=== PATIENT | male | born 1995 | race American Indian/Alaskan Native ===

== ENCOUNTER 2018-08-06 13:07 | Emergency (ER) | payer BC, OTHER ==
[2018-08-06] MEDS ORDERED: IBUPROFEN PO ONE (14:10)
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
[2018-08-06 15:36] VITALS: BP 128/62
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
== END 2018-08-06 15:48 | disposition left against medical advice (07) ==
LOC: ED 13:07
DX: S46.912A Strain of unspecified muscle, fascia and tendon at shoulder and upper arm level, left arm, initial encounter (principal); S16.1XXA Strain of muscle, fascia and tendon at neck level, initial encounter; J45.909 Unspecified asthma, uncomplicated; F17.200 Nicotine dependence, unspecified, uncomplicated; V89.2XXA Person injured in unspecified motor-vehicle accident, traffic, initial encounter; Y93.89 Activity, other specified; Y92.488 Other paved roadways as the place of occurrence of the external cause; Y99.8 Other external cause status
CPT/HCPCS: 72040; 99283

== ENCOUNTER 2020-02-02 10:22 | Emergency (ER) | payer BC ==
[2020-02-02 10:36] VITALS: BP 125/79
[2020-02-02] MEDS ORDERED: IPRATROPIUM 0.02% NEBU 2.5 ML IH ONE (11:38)
[2020-02-02] MEDS ORDERED: ALBUTEROL 2.5 MG/3 ML NEBU IH ONE (11:38)
[2020-02-02] MEDS ORDERED: dexAMETHasone 4 MG/ML VIAL IM ONE (11:38)
[2020-02-02] MEDS ORDERED: NAPROXEN 500 MG TAB PO ONE (12:00)
--- NOTE | 2020-02-02 13:17 | Emergency Department Report ---
ED Back Pain/Injury HPI - General Chief Complaint: Back Pain/Injury Stated Complaint: BACK PAIN Time Seen by Provider: 02/02/20 11:26 Source: patient Limitations: No Limitations - History of Present Illness Initial Comments: Pt is a 24 yo male who presents to the ED with c/o left lower back pain that radiates to the buttock that began two days ago. he states the pain increasing with lifting his left leg. he states that the pain is interfering with his daily life. no fall or injury. he denies any fever, vomiting, urinary symptoms, urinary retention, diarrhea, numbness, weakness, or bowel or bladder incontinence. he is ambulatory and drove himself to the ED. he has a PMHx of asthma. no allergies to meds. - Related Data Previous Rx's Medication Instructions Recorded Last Taken Type ALBUTEROL Inhaler(NF) [VENTOLIN 1 puff IH Q4H PRN #1 inha 05/31/18 Unknown Rx Inhaler(NF)] Azithromycin [Zithromax Z-PINA] 250 mg PO DAILY #6 tab 05/31/18 Unknown Rx Benzonatate [Tessalon Perles] 200 mg PO Q8HR PRN #30 capsule 05/31/18 Unknown Rx Ibuprofen [Ibuprofen 800] 800 mg PO TID PRN #30 tablet 05/31/18 Unknown Rx dexAMETHasone [Decadron] 4 mg PO BID #4 tablet 05/31/18 Unknown Rx Cyclobenzaprine [Flexeril] 10 mg PO TID PRN #30 tablet 06/06/18 Unknown Rx Menthol/Camphor [[place] 1 applicatio TP TID PRN #1 tube 06/06/18 Unknown Rx Ointment] Naproxen [Naprosyn] 500 mg PO BID PRN #30 tablet 06/06/18 Unknown Rx Albuterol Sulfate [Proventil Hfa] 6.7 gm IH TID PRN #1 hfa.aer.ad 02/02/20 Unknown Rx Naproxen 500 mg PO BID PRN #14 tablet 02/02/20 Unknown Rx Prednisone [predniSONE 10 mg 10 mg PO .TAPER #1 tab.ds.pk 02/02/20 Unknown Rx (6-Day Pack, 21 Tabs)] methOCARBAMOL [Robaxin TAB] 500 mg PO BID PRN #12 tablet 02/02/20 Unknown Rx Allergies Allergy/AdvReac Type Severity Reaction Status Date / Time No Known Allergies Allergy Verified 05/31/18 04:20 ED Review of Systems ROS: Stated complaint: BACK PAIN Other details as noted in HPI Comment: All other systems reviewed and negative ED Past Medical Hx - Past Medical History Previous Medical History?: Yes Hx Asthma: Yes - Surgical History Past Surgical History?: No - Social History Smoking Status: Current Every Day Smoker Substance Use Type: Alcohol, Marijuana - Medications Home Medications: Home Medications Medication Instructions Recorded Confirmed Last Taken Type ALBUTEROL Inhaler(NF) [VENTOLIN 1 puff IH Q4H PRN #1 inha 05/31/18 Unknown Rx Inhaler(NF)] Azithromycin [Zithromax Z-PINA] 250 mg PO DAILY #6 tab 05/31/18 Unknown Rx Benzonatate [Tessalon Perles] 200 mg PO Q8HR PRN #30 capsule 05/31/18 Unknown Rx Ibuprofen [Ibuprofen 800] 800 mg PO TID PRN #30 tablet 05/31/18 Unknown Rx dexAMETHasone [Decadron] 4 mg PO BID #4 tablet 05/31/18 Unknown Rx Cyclobenzaprine [Flexeril] 10 mg PO TID PRN #30 tablet 06/06/18 Unknown Rx Menthol/Camphor [[place] 1 applicatio TP TID PRN #1 tube 06/06/18 Unknown Rx Ointment] Naproxen [Naprosyn] 500 mg PO BID PRN #30 tablet 06/06/18 Unknown Rx Albuterol Sulfate [Proventil Hfa] 6.7 gm IH TID PRN #1 hfa.aer.ad 02/02/20 Unknown Rx Naproxen 500 mg PO BID PRN #14 tablet 02/02/20 Unknown Rx Prednisone [predniSONE 10 mg 10 mg PO .TAPER #1 tab.ds.pk 02/02/20 Unknown Rx (6-Day Pack, 21 Tabs)] methOCARBAMOL [Robaxin TAB] 500 mg PO BID PRN #12 tablet 02/02/20 Unknown Rx ED Physical Exam - General Limitations: No Limitations General appearance: alert, in no apparent distress - Head Head exam: Present: atraumatic, normocephalic - Eye Eye exam: Present: normal appearance - ENT ENT exam: Present: mucous membranes moist - Neck Neck exam: Present: normal inspection, full ROM. Absent: tenderness - Respiratory Respiratory exam: Present: wheezes (mild inspiratory and expiratory bilaterally). Absent: respiratory distress, rales, rhonchi, stridor, chest wall tenderness, accessory muscle use, decreased breath sounds, prolonged expiratory - Cardiovascular Cardiovascular Exam: Present: regular rate, normal rhythm, normal heart sounds. Absent: systolic murmur, diastolic murmur, rubs, gallop - Back Exam Back exam: Present: normal inspection, full ROM, paraspinal tenderness (left lumbar paraspinal muscular ttp, no midline C-spine, T-spine, L-spine ttp, no step offs, no deformities). Absent: vertebral tenderness - Neurological Exam Neurological exam: Present: alert, oriented X3, CN II-XII intact, normal gait. Absent: motor sensory deficit - Psychiatric Psychiatric exam: Present: normal affect, normal mood - Skin Skin exam: Present: warm, dry, intact ED Course Vital Signs 02/02/20 02/02/20 10:35 12:58 Temperature 98 F Pulse Rate 73 Respiratory 20 18 Rate Blood Pressure 125/79 [Right] O2 Sat by Pulse 99 Oximetry ED Medical Decision Making - Medical Decision Making Pt is a 24 yo male who presents to the ED with c/o left lower back pain that radiates to the buttock that began two days ago. he states the pain increasing with lifting his left leg. he states that the pain is interfering with his daily life. no fall or injury. he denies any fever, vomiting, urinary symptoms, urinary retention, diarrhea, numbness, weakness, or bowel or bladder incontinence. he is ambulatory and drove himself to the ED. he has a PMHx of asthma. no allergies to meds. vitals are normal. on exam: mild inspiratory and expiratory bilaterally wheezing, no rhonchi or rales, no respiratory distress, no accessory muscle use, left lumbar paraspinal muscular ttp, no midline C- spine, T-spine, L-spine ttp, no step offs, no deformities, no neuro deficits. pt was found to be having mild asthma exacerbation, he states he just noticed the wheezing today, he states he does not use his inhaler very often, he is not on steroids, no cough, no fever, no SOB, no CP. his back symptoms and exam appear most likely consistent with sciatica vs low back strain. pt has no red flag warning signs of back pain, no trauma, no unexplained weight loss, age is not greater than 50, no neuro deficits, no IVDU, no steroid use, no fever, no hx of cancer. pt given neb tx, steroids, and naproxen and symptoms improved and wheezing resolved. pt will be sent home with prescription for albuterol inhaler, steroids, naproxen, and robaxin. advised pt to please take medication as prescribed. do not drive or operate heavy machinery or work while taking muscle relaxer. may use ice pack, heating pad, rest, epsom salt bath. do the stretches for sciatica on the handout provided. follow up with a primary care doctor for reexamination. return to the emergency room for any new or worsening symptoms. Critical care attestation.: If time is entered above; I have spent that time in minutes in the direct care of this critically ill patient, excluding procedure time. ED Disposition Clinical Impression: Low back pain Qualifiers: Chronicity: acute Back pain laterality: left Sciatica presence: with sciatica Sciatica laterality: sciatica of left side Qualified Code(s): M54.42 - Lumbago with sciatica, left side Asthma exacerbation Qualifiers: Asthma severity: unspecified severity Asthma persistence: unspecified Qualified Code(s): J45.901 - Unspecified asthma with (acute) exacerbation Disposition: - TO HOME OR SELFCARE Is pt being admited?: No Does the pt Need Aspirin: No Condition: Stable Instructions: Asthma (ED), Sciatica (ED), Low Back Strain (ED) Additional Instructions: please take medication as prescribed. do not drive or operate heavy machinery or work while taking muscle relaxer. may use ice pack, heating pad, rest, epsom salt bath. do the stretches for sciatica on the handout provided. follow up with a primary care doctor for reexamination. return to the emergency room for any new or worsening symptoms. Prescriptions: Naproxen 500 mg PO BID PRN #14 tablet PRN Reason: pain Prednisone [predniSONE 10 mg (6-Day Pack, 21 Tabs)] 10 mg PO .TAPER #1 tab.ds.pk Albuterol Sulfate [Proventil Hfa] 6.7 gm IH TID PRN #1 hfa.aer.ad PRN Reason: Wheezing methOCARBAMOL [Robaxin TAB] 500 mg PO BID PRN #12 tablet PRN Reason: pain Referrals: DEEP MEIER MD [Staff Physician] - 2-3 Days [facility] [Provider Group] - 2-3 Days DREW SALVADOR MD [Staff Physician] - 2-3 Days JEROME DEE DO [Staff Physician] - 2-3 Days Time of Disposition: 13:19 Print Language: SWEDISH
== END 2020-02-02 13:26 | disposition home or self-care (01) ==
LOC: ED 10:22
DX: J45.901 Unspecified asthma with (acute) exacerbation (principal); M54.5 Low back pain; F17.200 Nicotine dependence, unspecified, uncomplicated; F12.10 Cannabis abuse, uncomplicated; Z79.1 Long term (current) use of non-steroidal anti-inflammatories (NSAID); Z79.2 Long term (current) use of antibiotics; Z79.899 Other long term (current) drug therapy
CPT/HCPCS: 94640; 96372; 99283; J1100

== ENCOUNTER 2021-08-20 10:15 | Emergency (ER) | payer BC ==
[2021-08-20 10:34] VITALS: BP 125/74
[2021-08-20] MEDS ORDERED: KETOROLAC 30 MG/1 ML INJ IV ONE (11:10)
[2021-08-20] MEDS ORDERED: dexAMETHasone 20 MG/5 ML VIAL IV ONE (11:10)
[2021-08-20] MEDS ORDERED: ACETAMINOPEN W/CODEINE 120-12MG ORAL LIQD 5 ML PO ONE (11:13)
--- NOTE | 2021-08-20 11:14 | Emergency Department Report ---
ED ENT HPI - General Chief complaint: Sore Throat Stated complaint: SWOLLEN TONSILS Time Seen by Provider: 08/20/21 10:56 Source: patient Mode of arrival: Ambulatory Limitations: Language Barrier - History of Present Illness Initial comments: 26-year-old male presents to the ER today with complaints of severe sore throat. Onset about 2 days ago. He reports difficulty swallowing due to pain and swelling. He denies any ill contacts. He denies any fever or chills. He denies any other URI symptoms. He has no trismus or drooling. He denies similar symptoms in the past. MD complaint: sore throat -: days(s) (2) - Related Data Previous Rx's Medication Instructions Recorded Last Taken Type ALBUTEROL Inhaler(NF) [VENTOLIN 1 puff IH Q4H PRN #1 inha 05/31/18 Unknown Rx Inhaler(NF)] Azithromycin [Zithromax Z-PINA] 250 mg PO DAILY #6 tab 05/31/18 Unknown Rx Benzonatate [Tessalon Perles] 200 mg PO Q8HR PRN #30 capsule 05/31/18 Unknown Rx dexAMETHasone [Decadron] 4 mg PO BID #4 tablet 05/31/18 Unknown Rx Cyclobenzaprine [Flexeril] 10 mg PO TID PRN #30 tablet 06/06/18 Unknown Rx Menthol/Camphor [[place] 1 applicatio TP TID PRN #1 tube 06/06/18 Unknown Rx Ointment] Naproxen [Naprosyn] 500 mg PO BID PRN #30 tablet 06/06/18 Unknown Rx Albuterol Sulfate [Proventil Hfa] 6.7 gm IH TID PRN #1 hfa.aer.ad 02/02/20 Unknown Rx Naproxen 500 mg PO BID PRN #14 tablet 02/02/20 Unknown Rx Prednisone [predniSONE 10 mg 10 mg PO .TAPER #1 tab.ds.pk 02/02/20 Unknown Rx (6-Day Pack, 21 Tabs)] methOCARBAMOL [Robaxin TAB] 500 mg PO BID PRN #12 tablet 02/02/20 Unknown Rx Amoxicillin/Potassium Clav 1 each PO BID #14 tab 08/20/21 Unknown Rx [Augmentin 875-125 Tablet] Ketorolac [Toradol] 10 mg PO Q6H PRN #20 tab 08/20/21 Unknown Rx Allergies Allergy/AdvReac Type Severity Reaction Status Date / Time No Known Allergies Allergy Verified 05/31/18 04:20 ED Dental HPI - General Chief complaint: Upper Respiratory Infection Stated complaint: SWOLLEN TONSILS Time Seen by Provider: 08/20/21 10:56 Source: patient Mode of arrival: Ambulatory Limitations: Language Barrier - Related Data Previous Rx's Medication Instructions Recorded Last Taken Type ALBUTEROL Inhaler(NF) [VENTOLIN 1 puff IH Q4H PRN #1 inha 05/31/18 Unknown Rx Inhaler(NF)] Azithromycin [Zithromax Z-PINA] 250 mg PO DAILY #6 tab 05/31/18 Unknown Rx Benzonatate [Tessalon Perles] 200 mg PO Q8HR PRN #30 capsule 05/31/18 Unknown Rx dexAMETHasone [Decadron] 4 mg PO BID #4 tablet 05/31/18 Unknown Rx Cyclobenzaprine [Flexeril] 10 mg PO TID PRN #30 tablet 06/06/18 Unknown Rx Menthol/Camphor [[place] 1 applicatio TP TID PRN #1 tube 06/06/18 Unknown Rx Ointment] Naproxen [Naprosyn] 500 mg PO BID PRN #30 tablet 06/06/18 Unknown Rx Albuterol Sulfate [Proventil Hfa] 6.7 gm IH TID PRN #1 hfa.aer.ad 02/02/20 Unknown Rx Naproxen 500 mg PO BID PRN #14 tablet 02/02/20 Unknown Rx Prednisone [predniSONE 10 mg 10 mg PO .TAPER #1 tab.ds.pk 02/02/20 Unknown Rx (6-Day Pack, 21 Tabs)] methOCARBAMOL [Robaxin TAB] 500 mg PO BID PRN #12 tablet 02/02/20 Unknown Rx Amoxicillin/Potassium Clav 1 each PO BID #14 tab 08/20/21 Unknown Rx [Augmentin 875-125 Tablet] Ketorolac [Toradol] 10 mg PO Q6H PRN #20 tab 08/20/21 Unknown Rx Allergies Allergy/AdvReac Type Severity Reaction Status Date / Time No Known Allergies Allergy Verified 05/31/18 04:20 ED Review of Systems ROS: Stated complaint: SWOLLEN TONSILS Other details as noted in HPI Comment: All other systems reviewed and negative Constitutional: denies: chills, diaphoresis, fever, malaise, weakness Eyes: denies: eye pain, eye discharge, vision change ENT: throat pain. denies: dental pain, hearing loss, epistaxis, congestion Respiratory: denies: cough, shortness of breath, SOB with exertion, SOB at rest, wheezing Gastrointestinal: denies: abdominal pain, nausea, diarrhea, constipation, hematemesis, hematochezia Genitourinary: denies: urgency, dysuria, frequency, hematuria, discharge, testicular pain, testicular mass Musculoskeletal: denies: back pain, joint swelling, arthralgia Skin: denies: rash, lesions, change in color, change in hair/nails, pruritus Neurological: denies: headache, weakness, numbness, paresthesias, confusion, abnormal gait, vertigo Psychiatric: denies: anxiety, depression, auditory hallucinations, visual hallucinations, homicidal thoughts, suicidal thoughts Hematological/Lymphatic: denies: easy bleeding, easy bruising, swollen glands ED Past Medical Hx - Past Medical History Hx Asthma: Yes - Surgical History Past Surgical History?: No - Social History Smoking Status: Current Every Day Smoker Substance Use Type: Alcohol, Marijuana - Medications Home Medications: Home Medications Medication Instructions Recorded Confirmed Last Taken Type ALBUTEROL Inhaler(NF) [VENTOLIN 1 puff IH Q4H PRN #1 inha 05/31/18 Unknown Rx Inhaler(NF)] Azithromycin [Zithromax Z-PINA] 250 mg PO DAILY #6 tab 05/31/18 Unknown Rx Benzonatate [Tessalon Perles] 200 mg PO Q8HR PRN #30 capsule 05/31/18 Unknown Rx dexAMETHasone [Decadron] 4 mg PO BID #4 tablet 05/31/18 Unknown Rx Cyclobenzaprine [Flexeril] 10 mg PO TID PRN #30 tablet 06/06/18 Unknown Rx Menthol/Camphor [[place] 1 applicatio TP TID PRN #1 tube 06/06/18 Unknown Rx Ointment] Naproxen [Naprosyn] 500 mg PO BID PRN #30 tablet 06/06/18 Unknown Rx Albuterol Sulfate [Proventil Hfa] 6.7 gm IH TID PRN #1 hfa.aer.ad 02/02/20 Unknown Rx Naproxen 500 mg PO BID PRN #14 tablet 02/02/20 Unknown Rx Prednisone [predniSONE 10 mg 10 mg PO .TAPER #1 tab.ds.pk 02/02/20 Unknown Rx (6-Day Pack, 21 Tabs)] methOCARBAMOL [Robaxin TAB] 500 mg PO BID PRN #12 tablet 02/02/20 Unknown Rx Amoxicillin/Potassium Clav 1 each PO BID #14 tab 08/20/21 Unknown Rx [Augmentin 875-125 Tablet] Ketorolac [Toradol] 10 mg PO Q6H PRN #20 tab 08/20/21 Unknown Rx ED Physical Exam - General Limitations: Language Barrier General appearance: alert, in no apparent distress - Head Head exam: Present: atraumatic, normocephalic, normal inspection - Eye Eye exam: Present: normal appearance, PERRL, EOMI Pupils: Present: normal accommodation - ENT ENT exam: Present: mucous membranes moist - Expanded ENT Exam Expanded Throat exam: Positive: tonsillar erythema, tonsillomegaly, tonsillar exudate, other (Uvula swollen and erythematous but no deviation). Negative: R peritonsillar mass, L peritonsillar mass - Neck Neck exam: Present: normal inspection, full ROM. Absent: lymphadenopathy - Respiratory Respiratory exam: Present: normal lung sounds bilaterally. Absent: respiratory distress, wheezes, rales, rhonchi, stridor - Cardiovascular Cardiovascular Exam: Present: regular rate, normal rhythm, normal heart sounds - Neurological Exam Neurological exam: Present: alert, oriented X3, CN II-XII intact, normal gait - Psychiatric Psychiatric exam: Present: normal affect, normal mood - Skin Skin exam: Present: intact ED Course Vital Signs 08/20/21 10:30 Temperature 98.5 F Pulse Rate 74 Respiratory 18 Rate Blood Pressure 125/74 O2 Sat by Pulse 100 Oximetry ED Medical Decision Making - Medical Decision Making 1306: Patient reports feeling better after meds. He is tolerating his secretions. He has no stridor. He has no trismus. He is not in any respiratory distress. Airway patent. Patient will be tx for possible strep tonsillitis and he will be given meds for pain. His VS stable. Patient was stable at discharge. Critical care attestation.: If time is entered above; I have spent that time in minutes in the direct care of this critically ill patient, excluding procedure time. ED Disposition Clinical Impression: Tonsillitis Disposition: 01 HOME / SELF CARE / HOMELESS Is pt being admited?: No Does the pt Need Aspirin: No Condition: Stable Instructions: Tonsillitis, [id number] Additional Instructions: Take the Augmentin as prescribed and to completion. Take toradol for pain. Follow up with PCP. Return to ED if worse. Prescriptions: Amoxicillin/Potassium Clav [Augmentin 875-125 Tablet] 1 each PO BID #14 tab Ketorolac [Toradol] 10 mg PO Q6H PRN #20 tab PRN Reason: Pain Referrals: [facility] [place] MD [Referring] - 3-5 Days Forms: Work/School Release Form(ED) Time of Disposition: 13:02
== END 2021-08-20 13:14 | disposition home or self-care (01) ==
LOC: ED 10:15
DX: J03.90 Acute tonsillitis, unspecified (principal); J45.909 Unspecified asthma, uncomplicated; F17.200 Nicotine dependence, unspecified, uncomplicated
CPT/HCPCS: 96374; 96375; 99282; J1100; J1885

== ENCOUNTER 2021-11-11 05:24 | Emergency (ER) | payer BC ==
[2021-11-11 06:03] VITALS: BP 105/43
[2021-11-11] MEDS ORDERED: HYDROcodone/ACETAMINOPHEN 5-325 MG TAB PO STA (08:10)
--- NOTE | 2021-11-11 08:37 | Emergency Department Report ---
ED Back Pain/Injury HPI - General Chief Complaint: Back Pain/Injury Stated Complaint: LOWER BACK PAIN Time Seen by Provider: 11/11/21 08:10 Source: patient Limitations: No Limitations - History of Present Illness MD Complaint: back pain, back injury -: Sudden Similar Symptoms Previously: Yes - Related Data Previous Rx's Medication Instructions Recorded Last Taken Type ALBUTEROL Inhaler(NF) [VENTOLIN 1 puff IH Q4H PRN #1 inha 05/31/18 Unknown Rx Inhaler(NF)] Azithromycin [Zithromax Z-PINA] 250 mg PO DAILY #6 tab 05/31/18 Unknown Rx Benzonatate [Tessalon Perles] 200 mg PO Q8HR PRN #30 capsule 05/31/18 Unknown Rx dexAMETHasone [Decadron] 4 mg PO BID #4 tablet 05/31/18 Unknown Rx Cyclobenzaprine [Flexeril] 10 mg PO TID PRN #30 tablet 06/06/18 Unknown Rx Menthol/Camphor [[place] 1 applicatio TP TID PRN #1 tube 06/06/18 Unknown Rx Ointment] Naproxen [Naprosyn] 500 mg PO BID PRN #30 tablet 06/06/18 Unknown Rx Albuterol Sulfate [Proventil Hfa] 6.7 gm IH TID PRN #1 hfa.aer.ad 02/02/20 Unknown Rx Naproxen 500 mg PO BID PRN #14 tablet 02/02/20 Unknown Rx Prednisone [predniSONE 10 mg 10 mg PO .TAPER #1 tab.ds.pk 02/02/20 Unknown Rx (6-Day Pack, 21 Tabs)] methOCARBAMOL [Robaxin TAB] 500 mg PO BID PRN #12 tablet 02/02/20 Unknown Rx Amoxicillin/Potassium Clav 1 each PO BID #14 tab 08/20/21 Unknown Rx [Augmentin 875-125 Tablet] Ketorolac [Toradol] 10 mg PO Q6H PRN #20 tab 08/20/21 Unknown Rx Ketorolac [Toradol] 10 mg PO Q6H PRN #15 tablet 11/11/21 Unknown Rx methOCARBAMOL [Robaxin] 750 mg PO Q8H PRN #21 tablet 11/11/21 Unknown Rx traMADoL [Ultram] 50 mg PO Q6HR PRN #20 tablet 11/11/21 Unknown Rx Allergies Allergy/AdvReac Type Severity Reaction Status Date / Time No Known Allergies Allergy Verified 05/31/18 04:20 ED Review of Systems ROS: Stated complaint: LOWER BACK PAIN Other details as noted in HPI ED Past Medical Hx - Past Medical History Hx Asthma: Yes - Social History Smoking Status: Current Every Day Smoker Substance Use Type: Alcohol, Marijuana - Medications Home Medications: Home Medications Medication Instructions Recorded Confirmed Last Taken Type ALBUTEROL Inhaler(NF) [VENTOLIN 1 puff IH Q4H PRN #1 inha 05/31/18 Unknown Rx Inhaler(NF)] Azithromycin [Zithromax Z-PINA] 250 mg PO DAILY #6 tab 05/31/18 Unknown Rx Benzonatate [Tessalon Perles] 200 mg PO Q8HR PRN #30 capsule 05/31/18 Unknown Rx dexAMETHasone [Decadron] 4 mg PO BID #4 tablet 05/31/18 Unknown Rx Cyclobenzaprine [Flexeril] 10 mg PO TID PRN #30 tablet 06/06/18 Unknown Rx Menthol/Camphor [[place] 1 applicatio TP TID PRN #1 tube 06/06/18 Unknown Rx Ointment] Naproxen [Naprosyn] 500 mg PO BID PRN #30 tablet 06/06/18 Unknown Rx Albuterol Sulfate [Proventil Hfa] 6.7 gm IH TID PRN #1 hfa.aer.ad 02/02/20 Unknown Rx Naproxen 500 mg PO BID PRN #14 tablet 02/02/20 Unknown Rx Prednisone [predniSONE 10 mg 10 mg PO .TAPER #1 tab.ds.pk 02/02/20 Unknown Rx (6-Day Pack, 21 Tabs)] methOCARBAMOL [Robaxin TAB] 500 mg PO BID PRN #12 tablet 02/02/20 Unknown Rx Amoxicillin/Potassium Clav 1 each PO BID #14 tab 08/20/21 Unknown Rx [Augmentin 875-125 Tablet] Ketorolac [Toradol] 10 mg PO Q6H PRN #20 tab 08/20/21 Unknown Rx Ketorolac [Toradol] 10 mg PO Q6H PRN #15 tablet 11/11/21 Unknown Rx methOCARBAMOL [Robaxin] 750 mg PO Q8H PRN #21 tablet 11/11/21 Unknown Rx traMADoL [Ultram] 50 mg PO Q6HR PRN #20 tablet 11/11/21 Unknown Rx ED Physical Exam - General Limitations: No Limitations ED Course Vital Signs 11/11/21 06:02 Temperature 98.2 F Pulse Rate 61 Respiratory 16 Rate Blood Pressure 105/43 [Right] O2 Sat by Pulse 96 Oximetry Critical care attestation.: If time is entered above; I have spent that time in minutes in the direct care of this critically ill patient, excluding procedure time. ED Disposition Disposition: HOME / SELF CARE / HOMELESS Condition: Stable Instructions: Radicular Pain, Acute Back Pain, Adult, Sciatica Prescriptions: methOCARBAMOL [Robaxin] 750 mg PO Q8H PRN #21 tablet PRN Reason: Spasms Ketorolac [Toradol] 10 mg PO Q6H PRN #15 tablet PRN Reason: Pain traMADoL [Ultram] 50 mg PO Q6HR PRN #20 tablet PRN Reason: Pain Referrals: [facility] [Provider Group] - 3-5 Days
== END 2021-11-11 09:51 | disposition home or self-care (01) ==
LOC: ED 05:24
DX: M54.50 Low back pain, unspecified (principal); J45.909 Unspecified asthma, uncomplicated; F17.290 Nicotine dependence, other tobacco product, uncomplicated
CPT/HCPCS: 99282